=== PATIENT | male | born 1995 | race Two or more races ===

== ENCOUNTER 2023-01-24 21:45 | Emergency (ER) | payer SELFPAY ==
[~2023-01-24] VITALS: Ht 177.8 cm; Wt 91.5 kg
[2023-01-24] MEDS ORDERED: HYDROcodone-ACET 10/325MG TAB PO ONE (22:15)
[2023-01-24 22:39] LABS: Basophils # (auto) 0.1 10 ^3/uL (0-0.2); Basophils % (auto) 0.3 % (0.0-2.0); Eosinophils # (auto) 0.4 10 ^3/uL (0-0.8); Eosinophils % (auto) 2.3 % (0.0-7.0); Hematocrit 40.3 % (41.0-53.0); Hemoglobin 13.8 g/dL (13.5-17.5); Lymphocytes # (auto) 2.2 10 ^3/uL (0.4-5.4); Lymphocytes % (auto) 14.2 % (10.0-50.0); Mean Corpuscular Hemoglobin 29.6 pg (28.0-32.0); Mean Corpuscular Hgb Conc. 34.2 g/dL (32.0-36.0); Mean Corpuscular Volume 86.4 fL (80.0-100.0); Monocytes # (auto) 1.9 10 ^3/uL (0-1.3); Monocytes % (auto) 12.2 % (0.0-12.0); Nucleated Red Blood Cells % 0.1 %; Red Blood Cells 4.67 10^6/uL (4.5-5.90); Red Cell Distribution Width 13.5 % (11.8-14.3); White Blood Cell 15.4 10^3/uL (4.4-10.8)
[2023-01-24 22:54] LABS: Alanine Aminotransferase 34 U/L (7-40); Albumin 4.3 g/dL (3.2-4.8); Alkaline Phosphatase 98 U/L (46-116); Anion Gap 7 (5-15); Aspartate Aminotransferase 27 U/L (13-40); Calcium 9.1 mg/dL (8.7-10.4); Carbon Dioxide 25 mmol/L (20-30); Chloride 101 mmol/L (98-107); Glucose 107 mg/dL (74-106); Lipase 37 U/L (12-53); Potassium 3.7 mmol/L (3.5-5.1); Sodium 133 mmol/L (136-145)
[2023-01-24 22:55] LABS: Total Protein 7.9 g/dL (5.7-8.2)
[2023-01-24 22:58] LABS: BUN/Creatinine Ratio 6.6 (10.0-20.0); Blood Urea Nitrogen < 5 mg/dL (9-23)
[2023-01-25] MEDS ORDERED: CEPH500C PO (00:43)
[2023-01-25] MEDS ORDERED: BACDST PO (00:43)
[2023-01-25] MEDS ORDERED: IBUP-1455 PO (00:43)
[2023-01-25] MEDS ORDERED: ACET500T58 PO (00:43)
[2023-01-25] MEDS ORDERED: BACIOIN15 TOP (00:43)
[2023-01-25 01:07] VITALS: BP 119/70; PULSE 83; RESP 18; TEMP 98.5; O2SAT 98
== END 2023-01-25 02:13 | disposition home or self-care (01) ==
LOC: ER 21:45
DX: L03.116 Cellulitis of left lower limb (principal); L03.115 Cellulitis of right lower limb
CPT/HCPCS: 36415; 80053; 83605; 83690; 85025; 93971; 99284; J7030

== ENCOUNTER 2024-07-20 01:51 | Emergency (ER) | payer MEDICAID, OTHER ==
[~2024-07-20] VITALS: Ht 180.3 cm; Wt 85.0 kg
[~2024-07-20 01:51] MED LIST: ACET500T58 PO; BACDST PO; BACIOIN15 TOP; CEPH500C PO; IBUP-1455 PO
[2024-07-20 02:00] VITALS: BP 124/72; PULSE 90; RESP 16; TEMP 97.3; O2SAT 94
[2024-07-20] MEDS ORDERED: IBUP-1456 PO (02:36)
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
[2024-07-20] MEDS: KETOROLAC TROMETH 60MG/2ML VIAL IM ONE (02:41)
--- NOTE | 2024-07-20 03:53 | DVH ---
INDICATION: NECK PAIN COMPARISON: None TECHNIQUE: 4 views of the cervical spine were obtained. FINDINGS: The cervical vertebral alignment is normal. The predental space is normal. The intervertebral disc spaces are well-maintained. No significant facet arthropathy is noted. No acute fracture, vertebral compression deformity or aggressive osseous lesions. The imaged lung apices are unremarkable. IMPRESSION: No acute fracture.
== END 2024-07-20 03:58 | disposition home or self-care (01) ==
LOC: ER 01:51
DX: S16.1XXA Strain of muscle, fascia and tendon at neck level, initial encounter (principal); J45.909 Unspecified asthma, uncomplicated; Z79.899 Other long term (current) drug therapy; V89.2XXA Person injured in unspecified motor-vehicle accident, traffic, initial encounter; Y93.89 Activity, other specified; Y92.410 Unspecified street and highway as the place of occurrence of the external cause; Y99.8 Other external cause status
CPT/HCPCS: 72040; 96372; 99283; J1885